=== PATIENT | male | born 1955 | race Two or more races ===

== ENCOUNTER 2020-09-23 07:57 | Day surgery (SDC) | payer OTHER ==
[2020-09-18 14:21] VITALS: BMI 24.3
[2020-09-23] MEDS ORDERED: LIDOCAINE HCL/PF 2% SDV 5ML VIAL ONE (08:05)
[2020-09-23] MEDS ORDERED: PROPOFOL 20 ML ONE ×4 (08:06)
[2020-09-23 09:33] VITALS: TEMP 97.8
[2020-09-23 09:54] VITALS: BP 118/85; PULSE 72
== END 2020-09-23 10:00 | disposition home or self-care (01) ==
LOC: FASU-ENDO 07:57 → EDBD 08:30 → FASU-ENDO 10:00
PROVIDERS: ATTEND Internal Medicine Gastroenterology
PROC: 0DJD8ZZ Inspection of Lower Intestinal Tract, Via Natural or Artificial Opening Endoscopic (ICD-10-PCS; principal; 2020-09-23 08:58)
DX: Z12.11 Encounter for screening for malignant neoplasm of colon (principal)